=== PATIENT | female | born 1965 | race Caucasian/White ===

== ENCOUNTER → 2016-06-05 | Outpatient (REF) ==
[~2016-06-05] MED LIST: AMOXICILLIN 8751 TAB PO; ASTELIN NASAL S34 ML NS; AUGMENTIN XR 101 TER PO; CLARITIN 1010 MG/TAB PO; DIFLUCAN150 MG PO; FLEXERIL 1010 MG/TAB PO; LEVOXYL0.125 MG PO; NAPROSYN 2250 MG/TAB; NAPROSYN500 MG PO; NASONEX SPRAY17 GM NS; NEURONTIN100 MG/CAP; NORCO 325 MG-51 TAB PO; PERCOCET 325 MG1 TA2 PO; PHENERGAN W/CO120 M1 PO; PREDNISONE10 MG PO; PROAIR HFA0.09 MG/AC IH; PROZAC 20MG20 MG PO; SINGULAIR 110 MG/TAB PO; SYNTHROID0.137 MG; ULTRAM 50MG TAB50 MG PO; VALIUM 2MG T2 MG/TAB PO; WELLBUTRIN SR100 M1 PO; ZYRTEC 10MG10 MG PO
== END ==
LOC: WSOH 11:12
DX: Z02.1 Encounter for pre-employment examination (principal)

== ENCOUNTER 2016-06-22 09:57 | Emergency (ER) | payer OTHER ==
[~2016-06-22] VITALS: Ht 170.2 cm; Wt 65.9 kg
[~2016-06-22 09:57] MED LIST changes: -VALIUM 2MG T2 MG/TAB PO
[2016-06-22 10:01] VITALS: TEMP 98.8
[2016-06-22 10:59] LABS: BASO % 0.7 % (0.0-2.0); EOS # 0.1 (0.0-0.7); EOS % 1.1 % (0-4.0); GRAN # 2.5 (1.4-6.5); GRAN % 57.9 % (42.2-75.2); HEMOGLOBIN 12.2 g/dl (12.5-16.0); LYMPH # 1.5 (1.2-3.4); LYMPH % 33.3 % (20.0-51.0); MEAN CELL VOLUME 91 fl (80.0-100.0); MEAN CORPUSCULAR HEMOGLOBIN 30 pg (27.0-31.0); MEAN CORPUSCULAR HGB CONC 33 g/dl (33.0-37.0); MEAN PLATELET VOLUME 11.5 fl (7.4-10.4); MONO # 0.3 (0.1-0.6); MONO % 6.8 % (1.7-9.3); PLATELET COUNT 141 K/mm3 (130-400); RED BLOOD COUNT 4.07 M/mm3 (4.10-5.30); REDCELL DISTRIBUTION WIDTH-CV 11.9 % (11.5-14.5); WHITE BLOOD COUNT 4.4 K/mm3 (4.8-10.8)
[2016-06-22 11:02] LABS: HEMATOCRIT 36.9 % (37.0-47.0)
[2016-06-22 11:18] LABS: ADJUSTED CALCIUM 9.2 mg/dL (8.4-10.2); ALANINE AMINOTRANSFERASE 26 U/L (9-52); ALBUMIN 3.9 gm/dL (3.5-5.0); ALKALINE PHOSPHATASE 45 U/L (50-136); ANION GAP 10 mmol/L (7-16); BILIRUBIN,TOTAL 0.8 mg/dL (0.0-1.0); BLOOD UREA NITROGEN 9 mg/dL (7-17); CALCIUM 9.1 mg/dL (8.4-10.2); CARBON DIOXIDE 23 mmol/L (22-30); CHLORIDE 108 mmol/L (98-107); CREATININE, serum 0.76 mg/dL (0.52-1.25); GLUCOSE 93 mg/dL (74-106); SODIUM 141 mmol/L (137-145); TOTAL PROTEIN 7.1 gm/dL (6.4-8.2)
[2016-06-22 11:29] LABS: C-REACTIVE PROTEIN < 0.5 mg/dL (0.0-0.9)
[2016-06-22 11:48] LABS: ERYTHROCYTE SEDIMENTATION RATE 7 mm/hr (0-20)
[2016-06-22 11:58] LABS: PH 7 (5-8); SQUAMOUS EPITHELIAL 0-2 /hpf; URINE APPEARANCE Clear; URINE BACTERIA Rare /hpf; URINE BILIRUBIN Negative (NEGATIVE); URINE BLOOD Negative (NEGATIVE); URINE COLOR Yellow; URINE GLUCOSE Negative (NEGATIVE); URINE KETONE Negative (NEGATIVE); URINE RBC None Seen /hpf; URINE UROBILINOGEN Negative (NEGATIVE); URINE WBC 0-2 /hpf
[2016-06-22] MEDS ORDERED: ULTRAM 50MG TAB50 MG PO (13:14)
[2016-06-22 13:41] VITALS: BP 116/76; PULSE 74
== END 2016-06-22 13:43 | disposition home or self-care (01) ==
LOC: COL.ER 09:57
PROVIDERS: Physician Assistant
DX: K52.9 Noninfective gastroenteritis and colitis, unspecified (principal)
CPT/HCPCS: J1885; J2405; J7030; Q9967

== ENCOUNTER 2016-07-04 00:27 | Emergency (ER) | payer OTHER ==
[~2016-07-04] VITALS: Ht 170.2 cm; Wt 65.9 kg
[2016-07-04 00:29] VITALS: TEMP 97.8
[2016-07-04 01:16] LABS: BASO % 0.6 % (0.0-2.0); EOS # 0.1 (0.0-0.7); EOS % 1.3 % (0-4.0); GRAN # 2.2 (1.4-6.5); GRAN % 43.2 % (42.2-75.2); LYMPH # 2.5 (1.2-3.4); LYMPH % 47.4 % (20.0-51.0); MEAN CELL VOLUME 92 fl (80.0-100.0); MEAN CORPUSCULAR HGB CONC 33 g/dl (33.0-37.0); MEAN PLATELET VOLUME 11.5 fl (7.4-10.4); MONO # 0.4 (0.1-0.6); MONO % 7.3 % (1.7-9.3); PLATELET COUNT 131 K/mm3 (130-400); RED BLOOD COUNT 3.94 M/mm3 (4.10-5.30); REDCELL DISTRIBUTION WIDTH-CV 11.9 % (11.5-14.5); WHITE BLOOD COUNT 5.2 K/mm3 (4.8-10.8)
[2016-07-04 01:17] LABS: HEMATOCRIT 36.2 % (37.0-47.0); HEMOGLOBIN 11.9 g/dl (12.5-16.0); MEAN CORPUSCULAR HEMOGLOBIN 30 pg (27.0-31.0)
[2016-07-04 01:25] LABS: ADJUSTED CALCIUM 9.2 mg/dL (8.4-10.2); ALANINE AMINOTRANSFERASE 25 U/L (9-52); ALKALINE PHOSPHATASE 49 U/L (50-136); ANION GAP 10 mmol/L (7-16); BILIRUBIN,TOTAL 0.6 mg/dL (0.0-1.0); BLOOD UREA NITROGEN 11 mg/dL (7-17); CALCIUM 9.2 mg/dL (8.4-10.2); CARBON DIOXIDE 27 mmol/L (22-30); CHLORIDE 106 mmol/L (98-107); CREATININE, serum 0.85 mg/dL (0.52-1.25); GLUCOSE 92 mg/dL (74-106); LIPASE 72 U/L (23-300); MAGNESIUM 1.8 mg/dL (1.6-2.3); POTASSIUM 3.4 mmol/L (3.4-5.0); SODIUM 143 mmol/L (137-145); TOTAL PROTEIN 7.2 gm/dL (6.4-8.2)
[2016-07-04 01:55] LABS: THYROID STIMULATING HORMONE 0.017 uIU/mL (0.465-4.680)
[2016-07-04 02:00] LABS: TROPONIN-I < 0.012 ng/mL (0.000-0.034)
[2016-07-04] MEDS ORDERED: VALIUM 2MG T2 MG/TAB PO (02:16)
[2016-07-04 02:59] VITALS: BP 122/70; PULSE 80
== END 2016-07-04 03:00 | disposition home or self-care (01) ==
LOC: COL.ER 00:27
PROVIDERS: Emergency Medicine
DX: G47.00 Insomnia, unspecified (principal); E03.9 Hypothyroidism, unspecified
CPT/HCPCS: J3360; J7030

== ENCOUNTER 2016-09-07 00:17 | Emergency (ER) | payer OTHER ==
[~2016-09-07] VITALS: Ht 170.2 cm; Wt 63.6 kg
[~2016-09-07 00:17] MED LIST changes: +VALIUM 2MG T2 MG/TAB PO
[2016-09-07 00:20] VITALS: TEMP 98.3
[2016-09-07 00:51] LABS: BASO % 0.5 % (0.0-2.0); EOS # 0.1 (0.0-0.7); EOS % 0.8 % (0-4.0); GRAN # 5.3 (1.4-6.5); GRAN % 67.6 % (42.2-75.2); HEMOGLOBIN 12.1 g/dl (12.5-16.0); LYMPH % 25.6 % (20.0-51.0); MEAN CELL VOLUME 93 fl (80.0-100.0); MEAN CORPUSCULAR HEMOGLOBIN 30 pg (27.0-31.0); MEAN CORPUSCULAR HGB CONC 33 g/dl (33.0-37.0); MEAN PLATELET VOLUME 11.4 fl (7.4-10.4); MONO # 0.4 (0.1-0.6); MONO % 5.2 % (1.7-9.3); PLATELET COUNT 129 K/mm3 (130-400); RED BLOOD COUNT 3.98 M/mm3 (4.10-5.30); REDCELL DISTRIBUTION WIDTH-CV 11.9 % (11.5-14.5); WHITE BLOOD COUNT 7.8 K/mm3 (4.8-10.8)
[2016-09-07 00:53] LABS: HEMATOCRIT 36.8 % (37.0-47.0)
[2016-09-07 01:04] LABS: ADJUSTED CALCIUM 8.9 mg/dL (8.4-10.2); ALANINE AMINOTRANSFERASE 21 U/L (9-52); ALBUMIN 4.6 gm/dL (3.5-5.0); ALKALINE PHOSPHATASE 48 U/L (50-136); ANION GAP 15 mmol/L (7-16); BILIRUBIN,TOTAL 0.5 mg/dL (0.0-1.0); BLOOD UREA NITROGEN 18 mg/dL (7-17); C-REACTIVE PROTEIN < 0.5 mg/dL (0.0-0.9); CALCIUM 9.4 mg/dL (8.4-10.2); CARBON DIOXIDE 24 mmol/L (22-30); CHLORIDE 101 mmol/L (98-107); CREATININE, serum 0.89 mg/dL (0.52-1.25); GLUCOSE 106 mg/dL (74-106); LIPASE 68 U/L (23-300); SODIUM 139 mmol/L (137-145); TOTAL PROTEIN 7.6 gm/dL (6.4-8.2)
[2016-09-07 02:12] LABS: PH 5 (5-8); SQUAMOUS EPITHELIAL 0-2 /hpf; URINE APPEARANCE Clear; URINE BACTERIA None Seen /hpf; URINE BILIRUBIN Negative (NEGATIVE); URINE BLOOD Negative (NEGATIVE); URINE COLOR Yellow; URINE GLUCOSE Negative (NEGATIVE); URINE KETONE Negative (NEGATIVE); URINE RBC 0-2 /hpf; URINE UROBILINOGEN Negative (NEGATIVE); URINE WBC 0-2 /hpf
[2016-09-07 02:52] VITALS: BP 118/80; PULSE 68
== END 2016-09-07 02:56 | disposition home or self-care (01) ==
LOC: COL.ER 00:17
PROVIDERS: Physician Assistant
DX: K59.00 Constipation, unspecified (principal); R10.31 Right lower quadrant pain
CPT/HCPCS: J1170; J2550; J7030; Q9967

== ENCOUNTER 2017-07-16 20:52 | Emergency (ER) | payer OTHER ==
[~2017-07-16] VITALS: Ht 170.2 cm; Wt 68.2 kg
[2017-07-16 21:04] VITALS: BP 143/68; TEMP 98.1
[2017-07-16] MEDS ORDERED: AMBIEN 5MG TABLE5 MG PO (21:43)
[2017-07-16] MEDS ORDERED: VALTREX1 GM PO (21:43)
[2017-07-16] MEDS ORDERED: PREDNISONE20 MG PO (23:47)
[2017-07-16] MEDS ORDERED: TESSALON P100 MG/CAP PO (23:51)
[2017-07-16 23:57] VITALS: PULSE 84
== END 2017-07-16 23:58 | disposition home or self-care (01) ==
LOC: COL.ER 20:52
DX: J20.9 Acute bronchitis, unspecified (principal); J45.909 Unspecified asthma, uncomplicated; F41.9 Anxiety disorder, unspecified; G43.909 Migraine, unspecified, not intractable, without status migrainosus; E03.9 Hypothyroidism, unspecified; Z87.891 Personal history of nicotine dependence
CPT/HCPCS: J7512

== ENCOUNTER 2017-09-21 12:15 | Emergency (ER) | payer OTHER ==
[~2017-09-21] VITALS: Ht 170.2 cm; Wt 68.2 kg
[~2017-09-21 12:15] MED LIST changes: +AMBIEN 5MG TABLE5 MG PO; +PREDNISONE20 MG PO; -SYNTHROID0.137 MG; +SYNTHROID0.137 MG PO; +TESSALON P100 MG/CAP PO; +VALTREX1 GM PO
[2017-09-21] MEDS ORDERED: VALTREX1 GM PO (12:34)
[2017-09-21 12:35] VITALS: BP 139/82; PULSE 81; TEMP 97
[2017-09-21] MEDS ORDERED: AMBIEN 5MG TABLE5 MG PO (12:35)
[2017-09-21] MEDS ORDERED: MOBIC15 MG PO (13:44)
== END 2017-09-21 13:59 | disposition home or self-care (01) ==
LOC: COL.ER 12:15
DX: G89.29 Other chronic pain (principal); M54.2 Cervicalgia; M26.601 Right temporomandibular joint disorder, unspecified; F17.210 Nicotine dependence, cigarettes, uncomplicated; Z88.1 Allergy status to other antibiotic agents; Z88.2 Allergy status to sulfonamides; Z88.8 Allergy status to other drugs, medicaments and biological substances; Z90.89 Acquired absence of other organs; Z98.890 Other specified postprocedural states; Z79.51 Long term (current) use of inhaled steroids

== ENCOUNTER 2019-01-31 12:01 | Emergency (ER) | payer OTHER ==
[~2019-01-31] VITALS: Ht 170.2 cm; Wt 68.6 kg
[~2019-01-31 12:01] MED LIST changes: +MOBIC15 MG PO
[2019-01-31 12:07] VITALS: BP 140/78; TEMP 98.7
[2019-01-31] MEDS ORDERED: AMOXICILLIN 8751 TAB PO (12:30)
[2019-01-31] MEDS ORDERED: DIFLUCAN200 MG PO (12:43)
[2019-01-31 12:47] VITALS: PULSE 67
== END 2019-01-31 12:47 | disposition home or self-care (01) ==
LOC: COL.ER 12:01
DX: J32.9 Chronic sinusitis, unspecified (principal)

== ENCOUNTER 2019-06-21 17:25 | Emergency (ER) | payer OTHER ==
[~2019-06-21] VITALS: Ht 170.2 cm; Wt 68.2 kg
[~2019-06-21 17:25] MED LIST changes: +DIFLUCAN200 MG PO
[2019-06-21 17:47] VITALS: BP 148/74; TEMP 98
[2019-06-21] MEDS ORDERED: AMOXICILLIN 8751 TAB PO (19:50)
[2019-06-21] MEDS ORDERED: PREDNISONE20 MG PO (19:50)
[2019-06-21] MEDS ORDERED: DIFLUCAN150 MG PO (20:23)
[2019-06-21 20:31] VITALS: PULSE 70
== END 2019-06-21 20:31 | disposition home or self-care (01) ==
LOC: COL.ER 17:25
DX: J01.90 Acute sinusitis, unspecified (principal); J45.909 Unspecified asthma, uncomplicated; F41.9 Anxiety disorder, unspecified; G43.909 Migraine, unspecified, not intractable, without status migrainosus; Z90.89 Acquired absence of other organs; Z87.891 Personal history of nicotine dependence

== ENCOUNTER → 2019-09-16 | Outpatient (CLI) | payer OTHER | LOC: COL.RAD 13:44 | DX: G43.009 Migraine without aura, not intractable, without status migrainosus (principal); R20.0 Anesthesia of skin ==

== ENCOUNTER → 2019-11-19 | Outpatient (CLI) | payer OTHER | LOC: COL.CARD 09:25 | DX: R42 Dizziness and giddiness (principal); R94.01 Abnormal electroencephalogram [EEG] ==

== ENCOUNTER 2020-03-27 08:30 | Outpatient (RCR) | payer OTHER | END 2020-04-26 11:12 | disposition home or self-care (01) | LOC: WSC 08:30 | DX: R42 Dizziness and giddiness (principal) ==

== ENCOUNTER → 2020-04-13 | Outpatient (CLI) | payer OTHER | LOC: COL.RAD 12:37 | DX: H91.90 Unspecified hearing loss, unspecified ear (principal); R42 Dizziness and giddiness ==

== ENCOUNTER 2021-03-05 14:45 | Outpatient (RCR) | payer OTHER ==
[2021-03-31] MEDS ORDERED: ZOFRAN ODT4 MG PO (23:54)
[2021-03-31] MEDS ORDERED: PROTONIX 40MG T40 MG PO (23:54)
[2021-03-31] MEDS ORDERED: PERCOCET 325 MG1 TA2 PO (23:54)
== END 2021-06-01 | disposition home or self-care (01) ==
LOC: WSST
DX: R13.12 Dysphagia, oropharyngeal phase (principal); J45.909 Unspecified asthma, uncomplicated; E89.0 Postprocedural hypothyroidism; Z85.850 Personal history of malignant neoplasm of thyroid

== ENCOUNTER → 2021-03-13 | Outpatient (CLI) | payer OTHER ==
[~2021-03-13] MED LIST changes: +PROTONIX 40MG T40 MG PO; +ZOFRAN ODT4 MG PO
== END ==
LOC: COL.RAD 16:00
DX: R13.10 Dysphagia, unspecified (principal)

== ENCOUNTER 2021-03-26 14:53 | Emergency (ER) | payer OTHER ==
[~2021-03-26] VITALS: Ht 170.2 cm; Wt 77.3 kg
[~2021-03-26 14:53] MED LIST changes: -PROTONIX 40MG T40 MG PO; -ZOFRAN ODT4 MG PO
[2021-03-26 15:11] VITALS: TEMP 98.6
[2021-03-26 17:15] VITALS: BP 128/83; PULSE 74
== END 2021-03-26 17:15 | disposition home or self-care (01) ==
LOC: COL.ER 14:53
DX: L50.9 Urticaria, unspecified (principal); J45.909 Unspecified asthma, uncomplicated; G47.00 Insomnia, unspecified; E07.9 Disorder of thyroid, unspecified; Z79.890 Hormone replacement therapy; Z79.899 Other long term (current) drug therapy
CPT/HCPCS: J2930